=== PATIENT | male | born 1930 | race Caucasian/White ===

== ENCOUNTER 2018-11-03 11:33 | Inpatient (IN) ==
[2018-11-03] MEDS ORDERED: MethylPREDNISolone Sod Succinate Inj 125 MG/2 ML Vial IV.PUSH ONE (13:02)
--- NOTE | 2018-11-03 13:08 | ED ---
HPI General Chief complaint: Chest Pain Stated complaint: Sent by [facility] oxygen level complaint/chest pain Time Seen by Provider: 11/03/18 12:50 History of Present Illness HPI narrative: this is an 88-year-old male with reported history of COPD, diabetes, hypertension, coronary artery disease who presents by private vehicle for evaluation of dyspnea, chest pain, cough. Symptoms started 2 or 3 weeks ago. The cough is productive with green sputum production. He reports that he has been on 3 different antibiotics over the past 2 or 3 weeks to treat this. He does not know the name of any of them. He reports that over the past 2 weeks has been having some diarrhea, approximately 3 episodes daily. Today he was seen at the [facility] and was reportedly sent here for further evaluation. No paperwork was sent with him. The chest pain is left-sided, sharp, worse when coughing. He has had any fevers or chills or myalgias. He has had no abdominal pain, nausea or vomiting. He has no other complaints at this time. Related Data Home Medications Medication Instructions Recorded Confirmed albuterol sulfate [Proventil HFA] 2 puff INHALATION Q6H PRN 11/03/18 11/03/18 alpha lipoic acid 600 mg PO DAILY 11/03/18 11/03/18 atorvastatin [Lipitor] 10 mg PO HS 11/03/18 11/03/18 budesonide-formoterol [Symbicort] 2 puff INHALATION Q12H 11/03/18 11/03/18 calcium carb-D3-mag ox-zinc ox 1 tab PO DAILY 11/03/18 11/03/18 [[place] Mag Zinc Plus D3] cholecalciferol (vitamin D3) 5,000 unit PO DAILY 11/03/18 11/03/18 [Vitamin D3] coQ10 (ubiquinol) 100 mg PO DAILY 11/03/18 11/03/18 finasteride 5 mg PO HS 11/03/18 11/03/18 gabapentin [Neurontin] 300 mg PO TID 11/03/18 11/03/18 glipizide 5 mg PO QPM 11/03/18 11/03/18 ipratropium-albuterol [Combivent 1 puff INHALATION QID 11/03/18 11/03/18 Respimat] metformin 500 mg PO BID 11/03/18 11/03/18 multivitamin 2 tab PO DAILY 11/03/18 11/03/18 oxycodone-acetaminophen [Percocet] 1 - 2 tab PO Q4H PRN 11/03/18 11/03/18 rivaroxaban [Xarelto] 20 mg PO QPM 11/03/18 11/03/18 terazosin 10 mg PO HS 11/03/18 11/03/18 trazodone 50 mg PO HS 11/03/18 11/03/18 turmeric root extract 500 mg PO DAILY 11/03/18 11/03/18 Previous Rx's Medication Instructions Recorded amlodipine [Norvasc] 5 mg PO DAILY #30 tab 11/04/18 prednisone 50 mg PO DAILY 3 Days #4 tab 11/04/18 vancomycin 125 mg PO Q6H 9 Days #36 cap 11/04/18 Allergies Allergy/AdvReac Type Severity Reaction Status Date / Time sulfur dioxide Allergy Hallucinati Verified 11/03/18 12:47 ons Review of Systems ROS: all other systems reviewed are negative [facility]LY [facility] Medical History Medical History Aortic stenosis (Acute) Atrial fibrillation (Acute) BPH (benign prostatic hyperplasia) (Acute) Bowel perforation (Acute) CAD (coronary artery disease) (Acute) COPD (chronic obstructive pulmonary disease) (Acute) Diabetes (Acute) History of Clostridium difficile infection (Acute) Hyperlipidemia (Acute) Hypertension (Acute) Surgical History Surgical History H/O hand surgery (Acute) H/O vasectomy (Acute) History of appendectomy (Acute) History of back surgery (Acute) Hx of CABG (Acute) Status post wrist surgery (Acute) Social History Social History Substance History: No History of Abuse Second Hand Smoke Exposure: No Smoking Status: Never smoker How Often Do You Have a Drink Containing Alcohol: Monthly or less Recent Travel in [facility] within the Last 8 Weeks: No Recent Out of Country Travel within the Last 8 Weeks: No Exam Narrative Exam Narrative: GENERAL: Well-developed well-nourished male in no acute distress. Oxygen saturation 88% on room air. SKIN: Warm and dry. HEAD: Atraumatic. Normocephalic. EYES: Pupils equal and round. No scleral icterus. No injection or drainage. ENT: No nasal bleeding or discharge. Mucous membranes pink and moist. NECK: Trachea midline. No JVD. CARDIOVASCULAR: Regular rate and rhythm. No murmur appreciated. RESPIRATORY: No accessory muscle use. Coarse breath sounds bilaterally, inspiratory and expiratory wheezing, prolonged expiratory phase. GASTROINTESTINAL: Abdomen soft, non-tender, nondistended. Hepatic and splenic margins not palpable. MUSCULOSKELETAL: No obvious deformities. No clubbing. No cyanosis. No edema. NEUROLOGICAL: Awake and alert. No obvious cranial nerve deficits. Motor grossly within normal limits. Normal speech. Course Initial Documented Vital Signs Pulse Oximetry 88 L 11/03/18 12:56 Last Documented Vital Signs Temperature 97.6 F 11/04/18 08:00 Pulse Rate 106 H 11/04/18 13:58 Respiratory Rate 14 11/04/18 13:58 Blood Pressure 168/73 H 11/04/18 13:58 Pulse Oximetry 95 11/04/18 13:58 Medical Decision Making TONY Attestation TONY supervised visit: Yes Attestation: I, Dr. Ceja, have reviewed the advance practice practitioner's documentation and am in agreement, met with the patient face to face, made the diagnosis, and the medical decision making was done by me. *My assessment and Findings: Acute exacerbation COPD MDM Narrative Medical decision making narrative: This patient comes in with an oxygen saturation of 88% with dyspnea, chest pain and cough for 2-3 weeks, has been treated with 3 different antibiotics as an outpatient. The patient was placed on ECG monitoring pulse oximetry. EKG was obtained revealing atrial fibrillation with rate of 93. The patient reports a history of atrial fibrillation, he is anticoagulated with Xarelto. Lab work, chest x- ray, duo nebs, Solu-Medrol ordered. Lab work is been reviewed. CBC reveals no significant abnormalities. Lactic acid 1.6. CMP reveals a BUN of 25, creatinine 1.63, GFR 40. BNP 109. Troponin and CK within normal limits. Chest x-ray reveals trace bibasilar atelectasis. The patient was ambulated and he felt dyspneic and weak while being ambulated. His oxygen saturation stayed in the 90s however it dropped into the low 90s. This was after DuoNeb treatment. The plan will be to admit him for observation for COPD exacerbation. IV Rocephin and azithromycin initiated. Medical Screen Exam Complete: Yes Emergency Medical Condition: Yes Differential Diagnosis Differential Diagnosis: COPD exacerbation, pneumonia, pulmonary edema, CHF, acute coronary syndrome, pulmonary embolism, bronchitis Lab Data Result diagrams: 11/04/18 06:00 11/04/18 06:00 Lab Results 11/03/18 11/03/18 11/03/18 Range/Units 13:12 13:12 13:12 WBC 9.2 (4.0-11.0) th/mm3 RBC 4.15 L (4.50-5.90) mil/mm3 Hgb 14.1 (13.0-17.0) gm/dL Hct 40.4 (39.0-51.0) % MCV 97.4 (80.0-100.0) fL MCH 34.1 H (27.0-34.0) pg MCHC 35.0 (32.0-36.0) % RDW 14.9 (11.6-17.2) % Plt Count 142 L (150-450) th/mm3 MPV 10.1 (7.0-11.0) fL Neut % (Auto) 82.7 H (16.0-70.0) % Lymph % (Auto) 10.1 (9.0-44.0) % Benzie % (Auto) 6.2 (0.0-8.0) % Eos % (Auto) 0.7 (0.0-4.0) % Baso % (Auto) 0.3 (0.0-2.0) % Neut # (Auto) 7.6 (1.8-7.7) th/mm3 Lymph # (Auto) 0.9 L (1.0-4.8) th/mm3 Benzie # (Auto) 0.6 (0.0-0.9) th/mm3 Eos # (Auto) 0.1 (0.0-0.4) th/mm3 Baso # (Auto) 0.0 (0.0-0.2) th/mm3 WBC Differential . Differential Comment Auto diff final PT 12.9 H (9.8-11.6) sec INR 1.3 Ratio APTT 31.2 (23.4-31.7) sec Puncture Site Patient Temperature O2 Saturation (90-100) % ABG pH (7.380-7.420) ABG pCO2 (38-42) mmHg ABG pO2 (61-120) mmHg ABG HCO3 (22-26) mmol/L ABG O2 Content (12.0-20.0) Vol % ABG Base Excess (-2-2) mmol/L ABG Methemoglobin (0-2) % Jesús Test Hemoglobin (12.0-16.0) G/DL Carboxyhemoglobin (0-4) % O2 Delivery Device Liter Flow L/M Critical Value Sodium 143 (136-145) meq/L Potassium 4.4 (3.5-5.1) meq/L Chloride 105 (98-107) meq/L Carbon Dioxide 31.0 (21.0-32.0) meq/L Anion Gap 7 (5-15) meq/L BUN 25 H (7-18) mg/dL Creatinine 1.63 H (0.60-1.30) mg/dL Estimated GFR 40 L (>89) mL/min POC Glucose (68-110) mg/dl Random Glucose 114 H (74-106) mg/dL Lactic Acid (0.4-2.0) mmol/L Uric Acid (2.6-7.2) mg/dl Calcium 9.0 (8.5-10.1) mg/dL Magnesium 1.5 (1.5-2.5) mg/dL Total Bilirubin 0.8 (0.2-1.0) mg/dL AST 28 (15-37) U/L ALT 49 (12-78) U/L Alkaline Phosphatase 49 (45-117) U/L Total Creatine Kinase 74 (39-308) U/L Troponin I Less than 0.02 L (0.02-0.05) ng/mL B-Natriuretic Peptide (0-100) pg/mL Total Protein 7.6 (6.4-8.2) g/dL Albumin 3.6 (3.4-5.0) g/dL Stool C.difficile Ag (Negative) Stool C.difficile Toxin (Negative) Stl C.difficile DNA Amp (Negative) St C. diff Tox Epid 027 (Negative) 11/03/18 11/03/18 11/03/18 Range/Units 13:12 13:12 14:15 WBC (4.0-11.0) th/mm3 RBC (4.50-5.90) mil/mm3 Hgb (13.0-17.0) gm/dL Hct (39.0-51.0) % MCV (80.0-100.0) fL MCH (27.0-34.0) pg MCHC (32.0-36.0) % RDW (11.6-17.2) % Plt Count (150-450) th/mm3 MPV (7.0-11.0) fL Neut % (Auto) (16.0-70.0) % Lymph % (Auto) (9.0-44.0) % Benzie % (Auto) (0.0-8.0) % Eos % (Auto) (0.0-4.0) % Baso % (Auto) (0.0-2.0) % Neut # (Auto) (1.8-7.7) th/mm3 Lymph # (Auto) (1.0-4.8) th/mm3 Benzie # (Auto) (0.0-0.9) th/mm3 Eos # (Auto) (0.0-0.4) th/mm3 Baso # (Auto) (0.0-0.2) th/mm3 WBC Differential Differential Comment PT (9.8-11.6) sec INR Ratio APTT (23.4-31.7) sec Puncture Site Left radial Patient Temperature 98.6 O2 Saturation 96 (90-100) % ABG pH 7.38 (7.380-7.420) ABG pCO2 50 H (38-42) mmHg ABG pO2 99 (61-120) mmHg ABG HCO3 29 H (22-26) mmol/L ABG O2 Content 16.0 (12.0-20.0) Vol % ABG Base Excess 4.2 H (-2-2) mmol/L ABG Methemoglobin 0.6 (0-2) % Jesús Test Present Hemoglobin 11.8 L (12.0-16.0) G/DL Carboxyhemoglobin 1.5 (0-4) % O2 Delivery Device Nasal cannula Liter Flow 4.00 L/M Critical Value No Sodium (136-145) meq/L Potassium (3.5-5.1) meq/L Chloride (98-107) meq/L Carbon Dioxide (21.0-32.0) meq/L Anion Gap (5-15) meq/L BUN (7-18) mg/dL Creatinine (0.60-1.30) mg/dL Estimated GFR (>89) mL/min POC Glucose (68-110) mg/dl Random Glucose (74-106) mg/dL Lactic Acid 1.6 (0.4-2.0) mmol/L Uric Acid (2.6-7.2) mg/dl Calcium (8.5-10.1) mg/dL Magnesium (1.5-2.5) mg/dL Total Bilirubin (0.2-1.0) mg/dL AST (15-37) U/L ALT (12-78) U/L Alkaline Phosphatase (45-117) U/L Total Creatine Kinase (39-308) U/L Troponin I (0.02-0.05) ng/mL B-Natriuretic Peptide 109 H (0-100) pg/mL Total Protein (6.4-8.2) g/dL Albumin (3.4-5.0) g/dL Stool C.difficile Ag (Negative) Stool C.difficile Toxin (Negative) Stl C.difficile DNA Amp (Negative) St C. diff Tox Epid 027 (Negative) 11/03/18 11/03/18 11/03/18 Range/Units 15:34 18:47 19:21 WBC (4.0-11.0) th/mm3 RBC (4.50-5.90) mil/mm3 Hgb (13.0-17.0) gm/dL Hct (39.0-51.0) % MCV (80.0-100.0) fL MCH (27.0-34.0) pg MCHC (32.0-36.0) % RDW (11.6-17.2) % Plt Count (150-450) th/mm3 MPV (7.0-11.0) fL Neut % (Auto) (16.0-70.0) % Lymph % (Auto) (9.0-44.0) % Benzie % (Auto) (0.0-8.0) % Eos % (Auto) (0.0-4.0) % Baso % (Auto) (0.0-2.0) % Neut # (Auto) (1.8-7.7) th/mm3 Lymph # (Auto) (1.0-4.8) th/mm3 Benzie # (Auto) (0.0-0.9) th/mm3 Eos # (Auto) (0.0-0.4) th/mm3 Baso # (Auto) (0.0-0.2) th/mm3 WBC Differential Differential Comment PT (9.8-11.6) sec INR Ratio APTT (23.4-31.7) sec Puncture Site Patient Temperature O2 Saturation (90-100) % ABG pH (7.380-7.420) ABG pCO2 (38-42) mmHg ABG pO2 (61-120) mmHg ABG HCO3 (22-26) mmol/L ABG O2 Content (12.0-20.0) Vol % ABG Base Excess (-2-2) mmol/L ABG Methemoglobin (0-2) % Jesús Test Hemoglobin (12.0-16.0) G/DL Carboxyhemoglobin (0-4) % O2 Delivery Device Liter Flow L/M Critical Value Sodium (136-145) meq/L Potassium (3.5-5.1) meq/L Chloride (98-107) meq/L Carbon Dioxide (21.0-32.0) meq/L Anion Gap (5-15) meq/L BUN (7-18) mg/dL Creatinine (0.60-1.30) mg/dL Estimated GFR (>89) mL/min POC Glucose 246 H (68-110) mg/dl Random Glucose (74-106) mg/dL Lactic Acid (0.4-2.0) mmol/L Uric Acid 6.7 (2.6-7.2) mg/dl Calcium (8.5-10.1) mg/dL Magnesium (1.5-2.5) mg/dL Total Bilirubin (0.2-1.0) mg/dL AST (15-37) U/L ALT (12-78) U/L Alkaline Phosphatase (45-117) U/L Total Creatine Kinase (39-308) U/L Troponin I Less than 0.02 L (0.02-0.05) ng/mL B-Natriuretic Peptide (0-100) pg/mL Total Protein (6.4-8.2) g/dL Albumin (3.4-5.0) g/dL Stool C.difficile Ag Positive H (Negative) Stool C.difficile Toxin Negative (Negative) Stl C.difficile DNA Amp Positive H (Negative) St C. diff Tox Epid 027 Negative (Negative) 11/03/18 11/04/18 11/04/18 Range/Units 22:17 00:05 05:21 WBC (4.0-11.0) th/mm3 RBC (4.50-5.90) mil/mm3 Hgb (13.0-17.0) gm/dL Hct (39.0-51.0) % MCV (80.0-100.0) fL MCH (27.0-34.0) pg MCHC (32.0-36.0) % RDW (11.6-17.2) % Plt Count (150-450) th/mm3 MPV (7.0-11.0) fL Neut % (Auto) (16.0-70.0) % Lymph % (Auto) (9.0-44.0) % Benzie % (Auto) (0.0-8.0) % Eos % (Auto) (0.0-4.0) % Baso % (Auto) (0.0-2.0) % Neut # (Auto) (1.8-7.7) th/mm3 Lymph # (Auto) (1.0-4.8) th/mm3 Benzie # (Auto) (0.0-0.9) th/mm3 Eos # (Auto) (0.0-0.4) th/mm3 Baso # (Auto) (0.0-0.2) th/mm3 WBC Differential Differential Comment PT (9.8-11.6) sec INR Ratio APTT (23.4-31.7) sec Puncture Site Patient Temperature O2 Saturation (90-100) % ABG pH (7.380-7.420) ABG pCO2 (38-42) mmHg ABG pO2 (61-120) mmHg ABG HCO3 (22-26) mmol/L ABG O2 Content (12.0-20.0) Vol % ABG Base Excess (-2-2) mmol/L ABG Methemoglobin (0-2) % Jesús Test Hemoglobin (12.0-16.0) G/DL Carboxyhemoglobin (0-4) % O2 Delivery Device Liter Flow L/M Critical Value Sodium (136-145) meq/L Potassium (3.5-5.1) meq/L Chloride (98-107) meq/L Carbon Dioxide (21.0-32.0) meq/L Anion Gap (5-15) meq/L BUN (7-18) mg/dL Creatinine (0.60-1.30) mg/dL Estimated GFR (>89) mL/min POC Glucose 427 H 210 H (68-110) mg/dl Random Glucose (74-106) mg/dL Lactic Acid (0.4-2.0) mmol/L Uric Acid (2.6-7.2) mg/dl Calcium (8.5-10.1) mg/dL Magnesium (1.5-2.5) mg/dL Total Bilirubin (0.2-1.0) mg/dL AST (15-37) U/L ALT (12-78) U/L Alkaline Phosphatase (45-117) U/L Total Creatine Kinase (39-308) U/L Troponin I Less than 0.02 L (0.02-0.05) ng/mL B-Natriuretic Peptide (0-100) pg/mL Total Protein (6.4-8.2) g/dL Albumin (3.4-5.0) g/dL Stool C.difficile Ag (Negative) Stool C.difficile Toxin (Negative) Stl C.difficile DNA Amp (Negative) St C. diff Tox Epid 027 (Negative) 11/04/18 11/04/18 11/04/18 Range/Units 06:00 06:00 08:39 WBC 6.5 (4.0-11.0) th/mm3 RBC 3.79 L (4.50-5.90) mil/mm3 Hgb 12.4 L (13.0-17.0) gm/dL Hct 36.9 L (39.0-51.0) % MCV 97.5 (80.0-100.0) fL MCH 32.7 (27.0-34.0) pg MCHC 33.5 (32.0-36.0) % RDW 14.7 (11.6-17.2) % Plt Count 119 L (150-450) th/mm3 MPV 10.2 (7.0-11.0) fL Neut % (Auto) 92.1 H (16.0-70.0) % Lymph % (Auto) 6.3 L (9.0-44.0) % Benzie % (Auto) 1.4 (0.0-8.0) % Eos % (Auto) 0.1 (0.0-4.0) % Baso % (Auto) 0.1 (0.0-2.0) % Neut # (Auto) 6.0 (1.8-7.7) th/mm3 Lymph # (Auto) 0.4 L (1.0-4.8) th/mm3 Benzie # (Auto) 0.1 (0.0-0.9) th/mm3 Eos # (Auto) 0.0 (0.0-0.4) th/mm3 Baso # (Auto) 0.0 (0.0-0.2) th/mm3 WBC Differential . Differential Comment Auto diff final PT (9.8-11.6) sec INR Ratio APTT (23.4-31.7) sec Puncture Site Patient Temperature O2 Saturation (90-100) % ABG pH (7.380-7.420) ABG pCO2 (38-42) mmHg ABG pO2 (61-120) mmHg ABG HCO3 (22-26) mmol/L ABG O2 Content (12.0-20.0) Vol % ABG Base Excess (-2-2) mmol/L ABG Methemoglobin (0-2) % Jesús Test Hemoglobin (12.0-16.0) G/DL Carboxyhemoglobin (0-4) % O2 Delivery Device Liter Flow L/M Critical Value Sodium 144 (136-145) meq/L Potassium 4.7 (3.5-5.1) meq/L Chloride 109 H (98-107) meq/L Carbon Dioxide 28.1 (21.0-32.0) meq/L Anion Gap 7 (5-15) meq/L BUN 23 H (7-18) mg/dL Creatinine 1.15 (0.60-1.30) mg/dL Estimated GFR 60 L (>89) mL/min POC Glucose 180 H (68-110) mg/dl Random Glucose 205 H (74-106) mg/dL Lactic Acid (0.4-2.0) mmol/L Uric Acid (2.6-7.2) mg/dl Calcium 8.6 (8.5-10.1) mg/dL Magnesium (1.5-2.5) mg/dL Total Bilirubin 0.4 (0.2-1.0) mg/dL AST 18 (15-37) U/L ALT 38 (12-78) U/L Alkaline Phosphatase 40 L (45-117) U/L Total Creatine Kinase (39-308) U/L Troponin I (0.02-0.05) ng/mL B-Natriuretic Peptide (0-100) pg/mL Total Protein 6.9 D (6.4-8.2) g/dL Albumin 3.1 L (3.4-5.0) g/dL Stool C.difficile Ag (Negative) Stool C.difficile Toxin (Negative) Stl C.difficile DNA Amp (Negative) St C. diff Tox Epid 027 (Negative) 11/04/18 Range/Units 13:02 WBC (4.0-11.0) th/mm3 RBC (4.50-5.90) mil/mm3 Hgb (13.0-17.0) gm/dL Hct (39.0-51.0) % MCV (80.0-100.0) fL MCH (27.0-34.0) pg MCHC (32.0-36.0) % RDW (11.6-17.2) % Plt Count (150-450) th/mm3 MPV (7.0-11.0) fL Neut % (Auto) (16.0-70.0) % Lymph % (Auto) (9.0-44.0) % Benzie % (Auto) (0.0-8.0) % Eos % (Auto) (0.0-4.0) % Baso % (Auto) (0.0-2.0) % Neut # (Auto) (1.8-7.7) th/mm3 Lymph # (Auto) (1.0-4.8) th/mm3 Benzie # (Auto) (0.0-0.9) th/mm3 Eos # (Auto) (0.0-0.4) th/mm3 Baso # (Auto) (0.0-0.2) th/mm3 WBC Differential Differential Comment PT (9.8-11.6) sec INR Ratio APTT (23.4-31.7) sec Puncture Site Patient Temperature O2 Saturation (90-100) % ABG pH (7.380-7.420) ABG pCO2 (38-42) mmHg ABG pO2 (61-120) mmHg ABG HCO3 (22-26) mmol/L ABG O2 Content (12.0-20.0) Vol % ABG Base Excess (-2-2) mmol/L ABG Methemoglobin (0-2) % Jesús Test Hemoglobin (12.0-16.0) G/DL Carboxyhemoglobin (0-4) % O2 Delivery Device Liter Flow L/M Critical Value Sodium (136-145) meq/L Potassium (3.5-5.1) meq/L Chloride (98-107) meq/L Carbon Dioxide (21.0-32.0) meq/L Anion Gap (5-15) meq/L BUN (7-18) mg/dL Creatinine (0.60-1.30) mg/dL Estimated GFR (>89) mL/min POC Glucose 282 H (68-110) mg/dl Random Glucose (74-106) mg/dL Lactic Acid (0.4-2.0) mmol/L Uric Acid (2.6-7.2) mg/dl Calcium (8.5-10.1) mg/dL Magnesium (1.5-2.5) mg/dL Total Bilirubin (0.2-1.0) mg/dL AST (15-37) U/L ALT (12-78) U/L Alkaline Phosphatase (45-117) U/L Total Creatine Kinase (39-308) U/L Troponin I (0.02-0.05) ng/mL B-Natriuretic Peptide (0-100) pg/mL Total Protein (6.4-8.2) g/dL Albumin (3.4-5.0) g/dL Stool C.difficile Ag (Negative) Stool C.difficile Toxin (Negative) Stl C.difficile DNA Amp (Negative) St C. diff Tox Epid 027 (Negative) Imaging Data Radiologist's impression: Chest X-Ray 11/03/18 13:03 CONCLUSION: Trace bibasilar atelectasis. Discharge Plan Discharge Disposition Patient Disposition: ED Admit(ED Internal Use Only) Discharge Condition Condition: Stable Discharge Order Discharge Orders: Discharge Order (Routine); Ordered 11/04/18 Ordered By: Feliciano Win ED Use Only Admit Order (Routine); Ordered 11/03/18 Ordered By: Ramon Turner Discharge Details Anticipated Discharge Date: 11/04/18 Diagnosis: COPD exacerbation Physicians Team ED Provider: Keanu Ceja ED Midlevel Provider: Ramon Turner Primary Care Provider: [facility],Physician 's Attending Provider: Feliciano Win Other Providers: [employer] Status ED Status: Left Department Discharge Information Discharge Date/Time: 11/03/18 17:37
[2018-11-03 13:36] LABS: Baso % (Auto) 0.3 % (0.0-2.0); Eos # (Auto) 0.1 th/mm3 (0.0-0.4); Eos % (Auto) 0.7 % (0.0-4.0); Hematocrit 40.4 % (39.0-51.0); Hemoglobin 14.1 gm/dL (13.0-17.0); Lymph # (Auto) 0.9 th/mm3 (1.0-4.8); Lymph % (Auto) 10.1 % (9.0-44.0); Mean Corpuscular Hemoglobin 34.1 pg (27.0-34.0); Mean Corpuscular Volume 97.4 fL (80.0-100.0); Mean Platelet Volume 10.1 fL (7.0-11.0); Mono # (Auto) 0.6 th/mm3 (0.0-0.9); Mono % (Auto) 6.2 % (0.0-8.0); Neut # (Auto) 7.6 th/mm3 (1.8-7.7); Neut % (Auto) 82.7 % (16.0-70.0); Platelet Count 142 th/mm3 (150-450); Red Blood Count 4.15 mil/mm3 (4.50-5.90); Red Cell Distribution Width 14.9 % (11.6-17.2); White Blood Count 9.2 th/mm3 (4.0-11.0)
[2018-11-03 13:48] LABS: Activated Partial Thrombo Time 31.2 sec (23.4-31.7); INR 1.3 Ratio; Prothrombin Time 12.9 sec (9.8-11.6)
[2018-11-03 13:55] LABS: Alanine Aminotransferase 49 U/L (12-78); Albumin 3.6 g/dL (3.4-5.0); Anion Gap 7 meq/L (5-15); Aspartate Aminotransferase 28 U/L (15-37); Blood Urea Nitrogen 25 mg/dL (7-18); Chloride 105 meq/L (98-107); Glomerular Filtration Rate 40 mL/min (>89); Glucose,Random 114 mg/dL (74-106); Magnesium 1.5 mg/dL (1.5-2.5); Potassium 4.4 meq/L (3.5-5.1); Sodium 143 meq/L (136-145)
[2018-11-03 13:58] LABS: Alkaline Phosphatase 49 U/L (45-117); Total Protein 7.6 g/dL (6.4-8.2)
--- NOTE | 2018-11-03 13:59 | XR ---
EXAM DATE: 11/03/2018 1:54 PM EST AGE/SEX: 88 years / Male INDICATIONS: Short of breath CLINICAL DATA: This is the patient's initial encounter. Patient reports that signs and symptoms have been present for 2 weeks and indicates a pain score of 0/10. MEDICAL/SURGICAL HISTORY: Chronic obstructive pulmonary disease. CABG. COMPARISON: [facility], XR CHEST PA AND LAT, 10/19/2018. . FINDINGS: There is trace bibasilar atelectasis. No pneumonic infiltrate seen. No pleural effusion or pneumothor ax. Heart size stable, upper limits of normal. Median sternotomy and CABG changes are again noted. CONCLUSION: Trace bibasilar atelectasis. Electronically signed by: Dusty Aguayo MD Board Certified Radiologist 11/03/2018 1:58 PM EST
[2018-11-03 14:03] LABS: Creatine Kinase 74 U/L (39-308)
[2018-11-03 14:26] LABS: ABG Base Excess 4.2 mmol/L (-2-2); ABG PCO2 50 mmHg (38-42); ABG PO2 99 mmHg (61-120)
[2018-11-03] MEDS ORDERED: Azithromycin Inj 500 MG in Sodium Chlor 0.9% Inj 250 ML IV.SIG ONE (15:23)
[2018-11-03] MEDS ORDERED: Dextrose 50% in Water 50 ML Vial IV.PUSH PRN (16:10)
[2018-11-03] MEDS ORDERED: Acetaminophen 325 MG Tablet PO PRN (16:13)
[2018-11-03] MEDS ORDERED: Sod Chloride 0.9% Inj 1,000 ML IV.CONT SCH (16:15)
[2018-11-03] MEDS ORDERED: oxyCODONE/Acetaminophen 10/325 Tablet PO PRN (16:23)
--- NOTE | 2018-11-03 16:32 | P.HPIM ---
History of Present Illness Primary Care Physician: [facility] History of Present Illness: The patient is an 88-year-old male with past medical history of COPD, A. fib and CAD who was presenting to the hospital with shortness of breath. The patient states that he has had shortness of breath for years. He says he is to follow-up with a pulmonary doctor. He says he has been exposed to asbestos in the past. He states that over the past 3 weeks he has been experiencing increased congestion. He says since 19 October he has seen 4 doctors and has been on multiple courses of antibiotics. He has been coughing up a lot of mucus. He denies any fevers. He does have left-sided chest pain that comes and goes and seems to be associated with coughing. The patient went to his doctor today and complained of some left knee pain. The doctor felt that the patient should come to the hospital because of his breathing status. The patient is not complaining of any pain at this time. The patient says he has been on steroids recently. He has never had home oxygen. Review of Systems Review of Systems: all other systems reviewed are negative [facility] Medical History Medical History Aortic stenosis (Acute) Atrial fibrillation (Acute) BPH (benign prostatic hyperplasia) (Acute) Bowel perforation (Acute) CAD (coronary artery disease) (Acute) COPD (chronic obstructive pulmonary disease) (Acute) Diabetes (Acute) Hyperlipidemia (Acute) Hypertension (Acute) Surgical History Surgical History H/O hand surgery (Acute) H/O vasectomy (Acute) History of appendectomy (Acute) History of back surgery (Acute) Hx of CABG (Acute) Status post wrist surgery (Acute) Family History Family History Other Lung cancer Social History Social History Substance History: No History of Abuse Smoking Status: Former smoker How Often Do You Have a Drink Containing Alcohol: Monthly or less Recent Travel in [facility] within the Last 8 Weeks: No Recent Out of Country Travel within the Last 8 Weeks: No Immunization History Tetanus Immunization: Unsure Medications and Allergies Allergies Allergy/AdvReac Type Severity Reaction Status Date / Time sulfur dioxide Allergy Hallucinati Verified 11/03/18 12:47 ons Home Medications Medication Instructions Recorded Confirmed Type albuterol sulfate [Proventil HFA] 2 puff INHALATION Q6H PRN 11/03/18 11/03/18 History alpha lipoic acid 600 mg PO DAILY 11/03/18 11/03/18 History atorvastatin [Lipitor] 10 mg PO HS 11/03/18 11/03/18 History budesonide-formoterol [Symbicort] 2 puff INHALATION Q12H 11/03/18 11/03/18 History calcium carb-D3-mag ox-zinc ox 1 tab PO DAILY 11/03/18 11/03/18 History [[place] Mag Zinc Plus D3] cholecalciferol (vitamin D3) 5,000 unit PO DAILY 11/03/18 11/03/18 History [Vitamin D3] clarithromycin 250 mg PO DAILY 11/03/18 11/03/18 History coQ10 (ubiquinol) 100 mg PO DAILY 11/03/18 11/03/18 History finasteride 5 mg PO HS 11/03/18 11/03/18 History gabapentin [Neurontin] 300 mg PO TID 11/03/18 11/03/18 History glipizide 5 mg PO QPM 11/03/18 11/03/18 History ipratropium-albuterol [Combivent 1 puff INHALATION QID 11/03/18 11/03/18 History Respimat] metformin 500 mg PO BID 11/03/18 11/03/18 History multivitamin 2 tab PO DAILY 11/03/18 11/03/18 History oxycodone-acetaminophen [Percocet] 1 - 2 tab PO Q4H PRN 11/03/18 11/03/18 History rivaroxaban [Xarelto] 20 mg PO QPM 11/03/18 11/03/18 History terazosin 10 mg PO HS 11/03/18 11/03/18 History trazodone 50 mg PO HS 11/03/18 11/03/18 History turmeric root extract 500 mg PO DAILY 11/03/18 11/03/18 History Active Medications: Active Medications Acetaminophen (Tylenol) 650 mg PO Q4H PRN PRN Reason: Temp > 100.4, pain 1-2 Atorvastatin Calcium (Lipitor) 10 mg PO HS [facility] Dextrose (D50w Vial) 50 ml IV.PUSH UNSCH PRN PRN Reason: PER HYPOGLYCEMIA PROTOCOL Finasteride (Proscar) 5 mg PO HS [facility] Gabapentin (Neurontin) 300 mg PO TID [facility] Glucagon (Glucagon Inj) 1 mg OTHER PRN PRN PRN Reason: for Hypoglycemia Protocol Sodium Chloride (Ns Inj) 1,000 mls @ 100 mls/hr IV.CONT .Q10H [facility] Stop: 11/04/18 02:14 Doxycycline Hyclate 100 mg/ (Sodium Chloride) 100 mls @ 100 mls/hr IV.SIG Q12H [facility] Insulin Aspart (Novolog Insulin Correctional Sugar Inj) 0 unit SQ Q6HR [facility]; Protocol Methylprednisolone Sodium Succinate (Solumedrol Inj) 40 mg IV.PUSH Q8HR [facility] Ondansetron HCl (Zofran Inj) 4 mg IV.PUSH Q6H PRN PRN Reason: NAUSEA OR VOMITING Oxycodone/Acetaminophen (Percocet 5/325 Mg) 1 tab PO Q4H PRN PRN Reason: Pain 3-5 Oxycodone/Acetaminophen (Percocet 10/325 Mg) 1 tab PO Q4H PRN PRN Reason: PAIN 6-10 Rivaroxaban (Xarelto) 20 mg PO DAILY@1800 [facility] Senna/Docusate Sodium (Shelly-Colace) 1 tab PO BID [facility] Sodium Chloride (Ns Flush) 2 ml IV.FLUSH BID [facility] Sodium Chloride (Ns Flush) 2 ml IV.FLUSH PRN PRN PRN Reason: FLUSH AFTER USING IV ACCESS Terazosin HCl (Hytrin) 10 mg PO HS [facility] Trazodone HCl (Desyrel) 50 mg PO HS [facility] Physical Exam Vital signs: Vital Signs 11/03/18 12:56 11/03/18 12:58 11/03/18 13:06 Pulse Rate 92 H Respiratory Rate 16 Blood Pressure 120/56 L Pulse Oximetry 88 L 96 97 11/03/18 14:15 11/03/18 15:25 Pulse Rate 77 Respiratory Rate 17 Blood Pressure Pulse Oximetry 98 91 L Intake & Output 11/02/18 11/03/18 11/03/18 18:59 06:59 18:59 Intake Total 100 / 100 Balance 100 / 100 Intake: IV 100 / 100 Rocephin Inj 1,000 MG In NS Inj 100 / 100 100 ML @ 200 mls/hr IV.SIG ONCE ONE Rx#:[id number] Narrative: GENERAL: Well-developed well-nourished male in no acute distress. SKIN: Warm and dry. HEAD: Atraumatic. Normocephalic. EYES: Pupils equal and round. No scleral icterus. No injection or drainage. ENT: No nasal bleeding or discharge. Mucous membranes pink and moist. NECK: Trachea midline. No JVD. CARDIOVASCULAR: Regular rate and rhythm. No murmur appreciated. RESPIRATORY: No accessory muscle use. Coarse breath sounds, rhonchi bilaterally. GASTROINTESTINAL: Abdomen soft, non-tender, nondistended. Hepatic and splenic margins not palpable. MUSCULOSKELETAL: No obvious deformities. No clubbing. No cyanosis. No edema. NEUROLOGICAL: Awake and alert. No obvious cranial nerve deficits. Motor grossly within normal limits. Normal speech. Results Labs CBC & Chem 7: 11/03/18 13:12 11/03/18 13:12 Imaging Impressions Chest X-Ray 11/03/18 13:03 CONCLUSION: Trace bibasilar atelectasis. Caprini VTE Risk Assessment Caprini VTE Risk Assessment: Moderate/High Risk (score >= 2) Caprini Risk Assessment Model: Point Value = 1 Point Value = 2 Point Value = 3 Point Value = 5 Age 41-60 Minor surgery BMI > 25 kg/m2 Swollen legs Varicose veins or History of unexplained or recurrent spontaneous Oral contraceptives or hormone replacement Sepsis (< 1 month) Serious lung disease, including pneumonia (< 1 month) Abnormal pulmonary function Acute myocardial infarction Congestive heart failure (< 1 month) History of inflammatory bowel disease Medical patient at bed rest Age 61-74 Arthroscopic surgery Major open surgery (> 45 min) Laparoscopic surgery (> 45 min) Malignancy Confined to bed (> 72 hours) Immobilizing plaster cast Central venous access Age >= 75 History of VTE Family history of VTE Factor V Leiden Prothrombin [id number] Lupus anticoagulant Anticardiolipin antibodies Elevated serum homocysteine Heparin-induced thrombocytopenia Other congenital or acquired thrombophilia Stroke (< 1 month) Elective arthroplasty Hip, pelvis, or leg fracture Acute spinal cord injury (< 1 month) Prophylaxis Regimen: Total Risk Factor Score Risk Level Prophylaxis Regimen 0-1 Low Early ambulation 2 Moderate Order ONE of the following: *Sequential Compression Device (SCD) *Heparin 5000 units SQ BID 3-4 Higher Order ONE of the following medications: *Heparin 5000 units SQ TID *Enoxaparin/Lovenox 40 mg SQ daily (WT < 150 kg, CrCl > 30 mL/min) *Enoxaparin/Lovenox 30 mg SQ daily (WT < 150 kg, CrCl > 10-29 mL/min) *Enoxaparin/Lovenox 30 mg SQ BID (WT < 150 kg, CrCl > 30 mL/min) AND/OR *Sequential Compression Device (SCD) 5 or more Highest Order ONE of the following medications: *Heparin 5000 units SQ TID (Preferred with Epidurals) *Enoxaparin/Lovenox 40 mg SQ daily (WT < 150 kg, CrCl > 30 mL/min) *Enoxaparin/Lovenox 30 mg SQ daily (WT < 150 kg, CrCl > 10-29 mL/min) *Enoxaparin/Lovenox 30 mg SQ BID (WT < 150 kg, CrCl > 30 mL/min) AND *Sequential Compression Device (SCD) Assessment and Plan Plan Acute respiratory failure Secondary to COPD exacerbation and history of asbestosis. Has failed multiple courses of antibiotics as an outpatient. -Standing and as needed duo nebs. -IV doxycycline. -IV steroids. Symbicort on hold. -Sputum and blood cultures pending. -Incentive spirometry. -Physical therapy evaluation. Atrial fibrillation Not on any rate control medications. -Continue Xarelto. -Monitor on telemetry. Acute renal failure Unsure of baseline creatinine. -IV fluids and monitor BMP. -Avoid nephrotoxic agents. CAD S/p CABG. Has left sided chest pain that the pt associates with cough. EKG without ischemia. CXR unremarkable. Initial trop negative. -treatment as above. -trend trops. -telemetry. DM Well controlled at this time. On metformin and glipizide as an outpatient. -insulin sliding scale. -Add long-acting insulin as needed. Left knee pain Exam unremarkable. -image if becomes painful again. -check uric acid level. PPx: Xarelto
[2018-11-03] MEDS ORDERED: Rivaroxaban 20 MG Tablet PO SCH (18:00)
[2018-11-03] MEDS: Insulin NovoLOG Aspart Correctional Sugar Inj SQ SCH ×2 (18:53→23:04)
[2018-11-03] MEDS: Gabapentin 300 MG Capsule PO SCH (18:53)
[2018-11-03 19:57] LABS: Uric Acid 6.7 mg/dl (2.6-7.2)
[2018-11-03] MEDS ORDERED: Finasteride 5 MG Tablet PO SCH (21:00)
[2018-11-03] MEDS ORDERED: traZODone 50 MG Tablet PO SCH (21:00)
[2018-11-03] MEDS: Senna/Docusate Sodium 8.6/50 MG Tablet PO SCH (22:22)
[2018-11-03] MEDS: MethylPREDNISolone Sod Succinate Inj 40 MG/ML Vial IV.PUSH SCH (22:23)
[2018-11-04] MEDS: MethylPREDNISolone Sod Succinate Inj 40 MG/ML Vial IV.PUSH SCH ×2 (05:30→13:04)
[2018-11-04] MEDS: Insulin NovoLOG Aspart Correctional Sugar Inj SQ SCH ×2 (05:31→14:14)
[2018-11-04 07:32] LABS: Baso % (Auto) 0.1 % (0.0-2.0); Eos % (Auto) 0.1 % (0.0-4.0); Hematocrit 36.9 % (39.0-51.0); Hemoglobin 12.4 gm/dL (13.0-17.0); Lymph # (Auto) 0.4 th/mm3 (1.0-4.8); Lymph % (Auto) 6.3 % (9.0-44.0); Mean Corpuscular HGB Conc 33.5 % (32.0-36.0); Mean Corpuscular Hemoglobin 32.7 pg (27.0-34.0); Mean Corpuscular Volume 97.5 fL (80.0-100.0); Mean Platelet Volume 10.2 fL (7.0-11.0); Mono # (Auto) 0.1 th/mm3 (0.0-0.9); Mono % (Auto) 1.4 % (0.0-8.0); Neut % (Auto) 92.1 % (16.0-70.0); Platelet Count 119 th/mm3 (150-450); Red Blood Count 3.79 mil/mm3 (4.50-5.90); Red Cell Distribution Width 14.7 % (11.6-17.2); White Blood Count 6.5 th/mm3 (4.0-11.0)
[2018-11-04 07:58] LABS: Alanine Aminotransferase 38 U/L (12-78); Albumin 3.1 g/dL (3.4-5.0); Anion Gap 7 meq/L (5-15); Aspartate Aminotransferase 18 U/L (15-37); Blood Urea Nitrogen 23 mg/dL (7-18); Calcium 8.6 mg/dL (8.5-10.1); Carbon Dioxide 28.1 meq/L (21.0-32.0); Chloride 109 meq/L (98-107); Glomerular Filtration Rate 60 mL/min (>89); Glucose,Random 205 mg/dL (74-106); Potassium 4.7 meq/L (3.5-5.1); Sodium 144 meq/L (136-145)
[2018-11-04 08:00] LABS: Alkaline Phosphatase 40 U/L (45-117); Total Protein 6.9 g/dL (6.4-8.2)
[2018-11-04] MEDS: Senna/Docusate Sodium 8.6/50 MG Tablet PO SCH (08:36)
[2018-11-04] MEDS: Gabapentin 300 MG Capsule PO SCH ×2 (08:36→13:03)
[2018-11-04 08:50] VITALS: TEMP 97.6
--- NOTE | 2018-11-04 11:57 | P.PNIM ---
Subjective Interval history: The patient was resting in bed. He said he did not have diarrhea since yesterday. He says his breathing was the same. He would like to go home today. He says he is able to ambulate. Discussed with nursing. Physical Exam Vital signs: Vital Signs 11/03/18 12:56 11/03/18 12:58 11/03/18 13:06 Temperature Pulse Rate 92 H Respiratory Rate 16 Blood Pressure 120/56 L Pulse Oximetry 88 L 96 97 11/03/18 14:15 11/03/18 15:25 11/03/18 16:15 Temperature Pulse Rate 77 108 H Respiratory Rate 17 22 Blood Pressure 101/53 L Pulse Oximetry 98 91 L 93 L 11/03/18 17:11 11/03/18 19:26 11/03/18 19:27 Temperature Pulse Rate 84 Respiratory Rate 18 Blood Pressure Pulse Oximetry 94 L 94 L 11/03/18 20:00 11/04/18 00:00 11/04/18 04:00 Temperature 98.7 F 98.1 F 97.7 F Pulse Rate 90 80 141 H Respiratory Rate 20 20 20 Blood Pressure 144/65 H 183/77 H 217/100 H Pulse Oximetry 94 L 92 L 92 L 11/04/18 05:43 11/04/18 07:57 11/04/18 08:00 Temperature 97.6 F Pulse Rate 82 80 93 H Respiratory Rate 18 20 18 Blood Pressure 187/80 H 179/82 H Pulse Oximetry 95 95 95 11/04/18 11:45 Temperature Pulse Rate 88 Respiratory Rate 16 Blood Pressure 196/81 H Pulse Oximetry 93 L Intake & Output 11/03/18 11/04/18 11/04/18 18:59 06:59 18:59 Intake Total 350 / 350 1000 / 1000 Output Total Balance 349 / 349 1000 / 1000 Weight 85.729 kg Intake: IV 350 / 350 1000 / 1000 NS Inj 1,000 ML @ 100 mls/hr IV 1000 / 1000 .CONT .Q10H [facility] Rx#:[id number] Azithromycin Inj 500 MG In NS 250 / 250 Inj 250 ML @ 250 mls/hr IV.SIG ONCE ONE Rx#:[id number] Rocephin Inj 1,000 MG In NS Inj 100 / 100 100 ML @ 200 mls/hr IV.SIG ONCE ONE Rx#:[id number] Output: Urine Other: # Voids 2 Date of Last Bowel Movement 11/04/18 Weight On Admission 85.729 kg Narrative: GENERAL: Well-developed well-nourished male in no acute distress. SKIN: Warm and dry. HEAD: Atraumatic. Normocephalic. EYES: Pupils equal and round. No scleral icterus. No injection or drainage. ENT: No nasal bleeding or discharge. Mucous membranes pink and moist. NECK: Trachea midline. No JVD. CARDIOVASCULAR: Regular rate and rhythm. No murmur appreciated. RESPIRATORY: No accessory muscle use. Coarse breath sounds, rhonchi bilaterally. GASTROINTESTINAL: Abdomen soft, non-tender, nondistended. Hepatic and splenic margins not palpable. MUSCULOSKELETAL: No obvious deformities. No clubbing. No cyanosis. No edema. NEUROLOGICAL: Awake and alert. No obvious cranial nerve deficits. Motor grossly within normal limits. Normal speech. Results Labs CBC & Chem 7: 11/04/18 06:00 11/04/18 06:00 Labs: Microbiology 11/03/18 13:12 Blood - Peripheral Aerobic Blood Culture - Preliminary No growth in 1 day 11/03/18 13:12 Blood - Peripheral Anaerobic Blood Culture - Preliminary No growth in 1 day 11/03/18 13:12 Blood - Peripheral Aerobic Blood Culture - Preliminary No growth in 1 day 11/03/18 13:12 Blood - Peripheral Anaerobic Blood Culture - Preliminary No growth in 1 day 11/03/18 17:23 Sputum - Expectorated Sputum Gram Stain - Final 11/03/18 13:09 Nasal Wash Influenza Types A,B Antigen - Final Negative for FLU A and B antigen Infection due to influenza A or B cannot be ruled out since the antigen present in the sample may be below the detection limit of the test. Imaging Imaging: Impressions Chest X-Ray 11/03/18 13:03 CONCLUSION: Trace bibasilar atelectasis. Assessment and Plan Plan Acute respiratory failure Secondary to COPD exacerbation and history of asbestosis. Has failed multiple courses of antibiotics as an outpatient. -Standing and as needed duo nebs. -IV steroids. Symbicort on hold. -Sputum and blood cultures pending. -Incentive spirometry. -Physical therapy evaluation appreciated. [facility] recommended. -walk test pending. C diff Stool sample positive for C diff. Has recently been on multiple antibiotics. Has not had a BM since the day of admission. -continue PO vanco to complete a 10 day course. Atrial fibrillation Not on any rate control medications. -Continue Xarelto. -Monitor on telemetry. Acute renal failure Unsure of baseline creatinine. -IV fluids and monitor BMP. Improved. -Avoid nephrotoxic agents. CAD S/p CABG. Has left sided chest pain that the pt associates with cough. EKG without ischemia. CXR unremarkable. Trops negative. -treatment as above. -telemetry. DM Well controlled at this time. On metformin and glipizide as an outpatient. -insulin sliding scale. -Add long-acting insulin as needed. Left knee pain Exam unremarkable. Uric acid level 6.7. -image if becomes painful again. PPx: Xarelto Discharge Planning: Await walk test. Possible d/c with [facility] later today Progress Note: Quality VTE Deep Vein Thrombosis/Pulmonary Embolism Present on Admission: No
[2018-11-04] MEDS ORDERED: amLODIPine 5 MG Tablet PO SCH (12:00)
[2018-11-04 13:59] VITALS: BP 168/73; PULSE 106; RESP 14; O2SAT 95
[2018-11-04] MEDS ORDERED: guaiFENesin 600 MG ER Tablet PO ONE (14:23)
--- NOTE | 2018-11-04 14:53 | P.DCO ---
Physical Therapy Order: Evaluate and treat, Improve ambulation and Strength and gait training Home Health Nursing Order: Medical education, Signs/symptoms of disease process, Oxygen administration education, Medication education-adverse effect and Nursing assessment with vital signs Case Management Consult Case Management Consult-Home Health: Yes I have seen patient Truong Morrison on 11/04/18. My clinical findings support the need for the requested home health care services because: Limited mobility due to disease progression and Patient has SOB I certify that my clinical findings support that this patient is homebound because: Hx COPD - exertion dyspnea/weakness, Unsteady gait/balance and Unsafe to leave home unassisted
[2018-11-04] MEDS ORDERED: guaiFENesin 600 MG ER Tablet PO SCH (21:00)
--- NOTE | 2018-11-04 22:45 | ECG ---
Date Performed: 11/04/2018 Time Performed: 00:33:45 PTAGE: 88 years EKG: ATRIAL FIBRILLATION NONSPECIFIC ST & T-WAVE ABNORMALITY ABNORMAL ECG NO PREVIOUS TRACING DOCTOR: Peter Padron Interpretating Date/Time 11/04/2018 22:43:51
--- NOTE | 2018-11-05 06:45 | ECG ---
Date Performed: 11/03/2018 Time Performed: 13:03:55 PTAGE: 88 years EKG: ATRIAL FIBRILLATION NONSPECIFIC T-WAVE ABNORMALITY ABNORMAL RHYTHM ECG PREVIOUS TRACING : 11/14/1999 06.53 Compared to previous tracing, atrial fibrillation has repla jocelynn NSR DOCTOR: Peter Padron Interpretating Date/Time 11/05/2018 06:45:02
== END 2018-11-04 16:10 | disposition home health service (06) | DRG 189 ==
LOC: NEDA 11:33 → NEPE 11:33 → NEPHCDU 17:32
PROVIDERS: ADMIT Hospitalist; ATTEND Hospitalist
CPT/HCPCS: 36600; 71010; 71045; 80053; 82550; 82805; 82948; 82962; 83520; 83605; 83735; 83880; 84484; 84550; 85025; 85610; 85730; 87040; 87070; 87205; 87275; 87276; 87324; 87449; 87493; 87804; 90774; 90775; 90784; 93005; 94150; 94618; 94620; 94640; 94664; 94665; 96374; 96375; 97162; 99285; C8952; G8987; G8988; J0456; J0696; J1815; J2920; J2930; J7030; J7050